=== PATIENT | female | born 1985 | race Caucasian/White ===

== ENCOUNTER 2017-08-26 09:24 | Emergency (ER) | payer BC, OTHER ==
[2017-08-26] MEDS ORDERED: KETOROLAC 30 MG/ML 1 ML VIAL IVP STA (09:41)
[2017-08-26] MEDS ORDERED: METOCLOPRAMIDE 5 MG/ML 2 ML VIAL IVP STA (09:41)
[2017-08-26] MEDS ORDERED: SODIUM CHLORIDE 0.9% 1,000 ML IV ONE (09:41)
[2017-08-26] MEDS ORDERED: guaiFENesin SYRUP 100MG/5ML 200 MG/10 ML CUP PO STA (09:41)
[2017-08-26] MEDS ORDERED: diphenhydrAMINE 50 MG/ML 1 ML VIAL IVP STA (09:41)
[2017-08-26] MEDS ORDERED: DEXAMETHASONE SOD PHOSPHATE 10 MG/ML 1 ML VIAL IV STA (09:42)
[2017-08-26 10:30] LABS: Basophils % (A) 1 %; Eosinophils # (A) 0.1 k/uL (0-0.7); Eosinophils % (A) 2 %; HCT 41.5 % (34.0-46.0); HGB 14.4 gm/dL (11.4-16.0); Lymphocytes # (A) 1.1 k/uL (1.0-4.8); Lymphocytes % (A) 45 %; MCH 32.3 pg (25.0-35.0); MCHC 34.8 g/dL (31.0-37.0); MCV 92.9 fL (80.0-100.0); Mean Platelet Volume 7.4; Monocytes # (A) 0.1 k/uL (0-1.0); Monocytes % (A) 4 %; Neutrophils # (A) 1.2 k/uL (1.3-7.7); Neutrophils % (A) 46 %; Platelet Count 235 k/uL (150-450); RBC 4.47 m/uL (3.80-5.40); RDW 11.7 % (11.5-15.5); WBC 2.5 k/uL (3.8-10.6)
[2017-08-26 10:44] LABS: ALT 11 U/L (9-52); AST 18 U/L (14-36); Albumin 4.8 g/dL (3.5-5.0); Alkaline Phosphatase 74 U/L (38-126); Anion Gap 16 mmol/L; Blood Urea Nitrogen 13 mg/dL (7-17); Calcium 9.9 mg/dL (8.4-10.2); Carbon Dioxide 27 mmol/L (22-30); Chloride 102 mmol/L (98-107); Potassium 4.3 mmol/L (3.5-5.1); Sodium 145 mmol/L (137-145); Total Bilirubin 0.4 mg/dL (0.2-1.3); Total Protein 7.4 g/dL (6.3-8.2)
--- NOTE | 2017-08-26 10:53 | XR ---
EXAMINATION TYPE: XR chest 2V DATE OF EXAM: 08/26/2017 COMPARISON: NONE HISTORY: Cough and pain per order. TECHNIQUE: Frontal and lateral views of the chest are obtained. FINDINGS: There is no focal air space opacity, pleural effusion, or pneumothorax seen. The cardiac silhouette size is within normal limits. The osseous structures are intact. IMPRESSION: No acute cardiopulmonary process.
[2017-08-26 10:59] LABS: Glucose 37 mg/dL (74-99)
--- NOTE | 2017-08-26 11:05 | ED ---
General Adult HPI - General Chief complaint: Headache Stated complaint: Migraine Time Seen by Provider: 08/26/17 09:33 Source: patient, RN notes reviewed Mode of arrival: ambulatory Limitations: no limitations - History of Present Illness Initial comments: 32-year-old female presents emergency Department chief complaint cough congestion, headache. Patient states she's been sick for last week with nasal congestion cough and chest disc. Patient states she developed a migraine headache today. She has a history migraine headaches normally takes Excedrin though she started taking Scooba today. States did not help. She states her aunt made her come in the hospital today. She reports no fever at home. Denies any neck pain or neck stiffness. States her cough is productive at time. Denies any abdominal pain slight nausea. She does have some light sensitivity. Patient states that she has NO KNOWN DRUG ALLERGIES. Denies any chance of . - Related Data Home Medications Medication Instructions Recorded Confirmed Dextroamphetamine/Amphetamine 30 mg PO BID 08/26/17 08/26/17 [Adderall] Hydrocodone/Acetaminophen [Vicodin 1 tab PO ONCE PRN 08/26/17 08/26/17 Es 7.5-300 mg Tablet] Sertraline [Zoloft] 25 mg PO DAILY 08/26/17 08/26/17 Allergies Allergy/AdvReac Type Severity Reaction Status Date / Time No Known Allergies Allergy Verified 08/26/17 09:49 Review of Systems ROS Statement: Those systems with pertinent positive or pertinent negative responses have been documented in the HPI. ROS Other: All systems not noted in ROS Statement are negative. Past Medical History Past Medical History: No Reported History History of Any Multi-Drug Resistant Organisms: None Reported Past Surgical History: Breast Surgery Additional Past Surgical History / Comment(s): Implants 2010 Past Anesthesia/Blood Transfusion Reactions: No Reported Reaction Past Psychological History: No Psychological Hx Reported Smoking Status: Current every day smoker Past Alcohol Use History: None Reported Past Drug Use History: None Reported - Past Family History Mother Family Medical History: CVA/TIA General Exam Limitations: no limitations General appearance: alert, in no apparent distress Head exam: Present: atraumatic, normocephalic, normal inspection Eye exam: Present: normal appearance, PERRL, EOMI. Absent: scleral icterus, conjunctival injection, periorbital swelling ENT exam: Present: normal exam, normal oropharynx, mucous membranes moist, TM's normal bilaterally Neck exam: Present: normal inspection, full ROM. Absent: tenderness, meningismus, lymphadenopathy Respiratory exam: Present: normal lung sounds bilaterally. Absent: respiratory distress, wheezes, rales, rhonchi, stridor Cardiovascular Exam: Present: regular rate, normal rhythm, normal heart sounds. Absent: systolic murmur, diastolic murmur, rubs, gallop, clicks Neurological exam: Present: alert, oriented X3, CN II-XII intact, reflexes normal, other (Finger to nose intact bilaterally without over shooting). Absent : motor sensory deficit Skin exam: Present: warm, dry, intact, normal color. Absent: rash Course Vital Signs 08/26/17 09:24 Temperature 97 F L Pulse Rate 68 Respiratory 18 Rate Blood Pressure 110/63 O2 Sat by Pulse 100 Oximetry Medical Decision Making - Medical Decision Making 32-year-old female presented emergency department for headache, URI symptoms. Patient chest x-ray was reviewed there is no acute abnormality. Patient lab work was hydrated, given medication for her headache. She states she feels improved. She did have hyperglycemia and labwork she was given orange juice, crackers she is tolerated repeat Accu-Chek any 9. Patient discharged at this time with a viral URI. - Lab Data Result diagrams: 08/26/17 10:00 08/26/17 10:00 Lab Results 08/26/17 08/26/17 08/26/17 Range/Units 10:00 10:00 10:00 WBC 2.5 L (3.8-10.6) k/uL RBC 4.47 (3.80-5.40) m/uL Hgb 14.4 (11.4-16.0) gm/dL Hct 41.5 (34.0-46.0) % MCV 92.9 (80.0-100.0) fL MCH 32.3 (25.0-35.0) pg MCHC 34.8 (31.0-37.0) g/dL RDW 11.7 (11.5-15.5) % Plt Count 235 (150-450) k/uL Neutrophils % 46 % Lymphocytes % 45 % Monocytes % 4 % Eosinophils % 2 % Basophils % 1 % Neutrophils # 1.2 L (1.3-7.7) k/uL Lymphocytes # 1.1 (1.0-4.8) k/uL Monocytes # 0.1 (0-1.0) k/uL Eosinophils # 0.1 (0-0.7) k/uL Basophils # 0.0 (0-0.2) k/uL Sodium 145 (137-145) mmol/L Potassium 4.3 (3.5-5.1) mmol/L Chloride 102 (98-107) mmol/L Carbon Dioxide 27 (22-30) mmol/L Anion Gap 16 mmol/L BUN 13 (7-17) mg/dL Creatinine 0.78 (0.52-1.04) mg/dL Est GFR (CKD-EPI)AfAm >90 (>60 ml/min/1.73 sqM) Est GFR (CKD-EPI)NonAf >90 (>60 ml/min/1.73 sqM) Glucose 37 L* (74-99) mg/dL POC Glucose (mg/dL) (75-99) mg/dL POC Glu Pv Design Engineer ID Calcium 9.9 (8.4-10.2) mg/dL Total Bilirubin 0.4 (0.2-1.3) mg/dL AST 18 (14-36) U/L ALT 11 (9-52) U/L Alkaline Phosphatase 74 (38-126) U/L Total Protein 7.4 (6.3-8.2) g/dL Albumin 4.8 (3.5-5.0) g/dL Influenza Type A RNA Not Detected (Not Detectd) Influenza Type B (PCR) Not Detected (Not Detectd) 08/26/17 Range/Units 11:35 WBC (3.8-10.6) k/uL RBC (3.80-5.40) m/uL Hgb (11.4-16.0) gm/dL Hct (34.0-46.0) % MCV (80.0-100.0) fL MCH (25.0-35.0) pg MCHC (31.0-37.0) g/dL RDW (11.5-15.5) % Plt Count (150-450) k/uL Neutrophils % % Lymphocytes % % Monocytes % % Eosinophils % % Basophils % % Neutrophils # (1.3-7.7) k/uL Lymphocytes # (1.0-4.8) k/uL Monocytes # (0-1.0) k/uL Eosinophils # (0-0.7) k/uL Basophils # (0-0.2) k/uL Sodium (137-145) mmol/L Potassium (3.5-5.1) mmol/L Chloride (98-107) mmol/L Carbon Dioxide (22-30) mmol/L Anion Gap mmol/L BUN (7-17) mg/dL Creatinine (0.52-1.04) mg/dL Est GFR (CKD-EPI)AfAm (>60 ml/min/1.73 sqM) Est GFR (CKD-EPI)NonAf (>60 ml/min/1.73 sqM) Glucose (74-99) mg/dL POC Glucose (mg/dL) 99 (75-99) mg/dL POC Glu Pv Design Engineer ID Calcium (8.4-10.2) mg/dL Total Bilirubin (0.2-1.3) mg/dL AST (14-36) U/L ALT (9-52) U/L Alkaline Phosphatase (38-126) U/L Total Protein (6.3-8.2) g/dL Albumin (3.5-5.0) g/dL Influenza Type A RNA (Not Detectd) Influenza Type B (PCR) (Not Detectd) Disposition Clinical Impression: Hypoglycemia, Migraine, Viral URI Disposition: HOME SELF-CARE Condition: Stable Instructions: Upper Respiratory Infection (ED) Additional Instructions: Please return to the Emergency Department if symptoms worsen or any other concerns. Is patient prescribed a controlled substance at d/c from ED?: No Referrals: Ash Plascencia MD [Primary Care Provider] - 1-2 days Time of Disposition: 11:40
[2017-08-26 11:37] LABS: Glucose,Whole Blood 99 mg/dL (75-99)
[2017-08-26 11:57] VITALS: BP 107/62; PULSE 67; RESP 16; TEMP 98.2
== END 2017-08-26 12:11 | disposition home or self-care (01) ==
LOC: EC 09:24
DX: G43.909 Migraine, unspecified, not intractable, without status migrainosus (principal); J06.9 Acute upper respiratory infection, unspecified; E16.2 Hypoglycemia, unspecified; F17.200 Nicotine dependence, unspecified, uncomplicated; Z79.899 Other long term (current) drug therapy
CPT/HCPCS: 36415; 80053; 85025; 87502; 71046; 99284; 96374; 96375 ×3; 96361; J1200; J1100; J2765; J1885

== ENCOUNTER → 2018-11-25 | Outpatient (CLI) | payer OTHER ==
--- NOTE | 2018-11-25 08:39 | US ---
EXAMINATION TYPE: US abdomen complete DATE OF EXAM: 11/25/2018 COMPARISON: NONE CLINICAL HISTORY: R10.9 unspecified abdominal Pain. Pain and vomiting. EXAM MEASUREMENTS: Liver Length: 13.9 cm Gallbladder Wall: 0.14 cm CBD: 0.2 cm Spleen: 10.6 cm Right Kidney: 10.1 x 4.2 x 4.9 cm Left Kidney: 9.9 x 3.6 x 3.1 cm Pancreas: wnl Liver: wnl Gallbladder: wnl Evidence for sonographic Palafox's sign: No CBD: wnl Spleen: wnl Right Kidney: wnl Left Kidney: wnl Upper IVC: wnl Abd Aorta: wnl The liver is homogenous. The intrahepatic portion of the IVC and proximal abdominal aorta are within normal limits. There is no evidence of cholelithiasis. Common bile duct is unremarkable. The visu alized portions of the pancreas are homogenous. The spleen is unremarkable. Kidneys are symmetric a nd free of hydronephrosis. No renal lesions are seen. IMPRESSION: Unremarkable abdominal ultrasound. No current evidence of cholelithiasis nor acute cholec ystitis in this patient with pain and vomiting.
== END | disposition home or self-care (01) ==
LOC: RADUSWWP 07:01
PROVIDERS: ATTEND Family Medicine
DX: R10.9 Unspecified abdominal pain (principal)
CPT/HCPCS: 76700

== ENCOUNTER → 2018-12-09 | Outpatient (CLI) | payer OTHER ==
--- NOTE | 2018-12-09 14:52 | NM ---
EXAMINATION TYPE: NM hepatobiliary w EF DATE OF EXAM: 12/09/2018 COMPARISON: Complete abdominal ultrasound from 2 weeks ago. HISTORY: Right upper quadrant pain. Additional symptoms of heartburn and reflux-like symptoms. TECHNIQUE: After the intravenous administration of 3.98 mCi Tc 99m Mebrofenin hepatobiliary scintigra phy is performed. Immediate images post injection. FINDINGS: There is poor diffuse accumulation of tracer by the liver. The gallbladder is visualized within 20 m inutes. The small bowel activity is noted within 40 minutes. At one hour 8 ounces of oral ensure pl us is given to mimic CCK and gallbladder ejection fraction is calculated at 78 %, in the normal range . Therefore there is no scintigraphic evidence of cystic or common bile duct obstruction to suggest acute cholecystitis or gallbladder dyskinesia. IMPRESSION: Exam is within normal limits.
== END | disposition home or self-care (01) ==
LOC: RADNMMAIN 12:39
PROVIDERS: ATTEND Family Medicine
DX: R10.11 Right upper quadrant pain (principal)
CPT/HCPCS: 78226; A9537

== ENCOUNTER → 2019-11-09 | Outpatient (CLI) | payer OTHER ==
--- NOTE | 2019-11-10 06:35 | MR ---
EXAMINATION TYPE: MR brain wo/w con DATE OF EXAM: 11/09/2019 COMPARISON: Outside CT at [facility] on November 01, 2019 HISTORY: Possible Subarachnoid Bleed, injury 11/01/19, recent abnormal CT. TECHNIQUE: Multiplanar, multisequence images of the brain and brainstem is performed without and with IV contras t, utilizing 6 mL intravenous Gadavist . FINDINGS: Diffusion weighted images demonstrate no evidence of a recent infarct or other diffusion ab normality. There is no worrisome extra-axial fluid collection. The ventricular system and cisternal spaces are normal in size and appearance. The brain volume is age appropriate. Occasional tiny focu s of T2 hyperintensity scattered throughout the white matter bilaterally. Approximately 5 -8 small le sions all measuring under 3 mm in size. T2 Star weighted images show no single punctate 2 mm focus de ep right parietal occipital region image 20 could reflect single focus of diffuse axonal injury. Midline structures demonstrate normal morphology. The craniocervical junction appears within normal limits. Post contrast images demonstrate no abnormal enhancement. The dural venous sinuses appear pa tent. The visualized sinuses are clear and the globes are intact. IMPRESSION: Single 2 mm focus low signal on T2 Star weighted images suspicious for tiny focus of diff use axonal injury deep right parietal occipital level. Mild to minimal nonspecific white matter loyd es. No suspicious enhancement.
== END | disposition home or self-care (01) ==
LOC: RADMRIMAIN 16:33
PROVIDERS: ATTEND Family Medicine
DX: S09.90XS Unspecified injury of head, sequela (principal)
CPT/HCPCS: 70553; A9585

== ENCOUNTER → 2020-07-07 | Outpatient (CLI) | payer OTHER ==
--- NOTE | 2020-07-07 11:35 | MM ---
Reason for exam: clinical finding. Baseline mammogram. History: Retro-pectoral silicone gel implants in both breasts, 2010. Physical Findings: Nurse Summary: 0.5cm nodule in the left breast at 5 o'clock and 12 o'clock (nurse mj). MG 3D Diag Mammo Imp W/Cad CARRIE Bilateral CC, MLO, and ID view(s) were taken. The breast tissue is extremely dense which could obscure a lesion on mammography. Bilateral breast prothesis. These results were verbally communicated with the patient and result sheet given to the patient on 07/07/20. ASSESSMENT: Incomplete: need additional imaging evaluation, BI-RAD 0 RECOMMENDATION: Ultrasound of the left breast.
--- NOTE | 2020-07-07 11:37 | USB ---
Reason for exam: additional evaluation requested from abnormal screening. History: Retro-pectoral silicone gel implants in both breasts, 2010. US Breast Limited LT Left limited breast ultrasound including focal area of concern, retroareolar and axilla demonstrates a 0.4 x 0.6 x 0.2cm oval, cystic cluster at 5 o'clock BB, a 0.5 x 0.4 x 0.2cm oval, cystic lesion at 9 o'clock 1cm from nipple and a 0.5 x 0.5 x 0.3cm oval, cystic lesion at 9 o'clock 2cm from nipple. These results were verbally communicated with the patient and result sheet given to the patient on 07/07/20. ASSESSMENT: Probably benign, BI-RAD 3 RECOMMENDATION: Ultrasound of the left breast in 6 months. Manage patient on a clinical basis.
== END ==
LOC: RADMAMWWP 08:42
PROVIDERS: ATTEND Family Medicine
DX: N63.20 Unspecified lump in the left breast, unspecified quadrant (principal); R92.8 Other abnormal and inconclusive findings on diagnostic imaging of breast
CPT/HCPCS: 77066; 76642; G0279; 77062

== ENCOUNTER → 2024-08-27 | Outpatient (CLI) | payer OTHER ==
--- NOTE | 2024-08-27 14:14 | XR ---
EXAMINATION TYPE: XR chest special 4+ views DATE OF EXAM: 08/27/2024 CLINICAL INDICATION: Female, 39 years old with history of J93.9 R/O Collapsed lung, TECHNIQUE: Frontal , bilateral oblique, and lateral views of the chest are obtained. COMPARISON: Prior chest x-ray August 26, 2017 FINDINGS: There is no focal air space opacity, pleural effusion, or pneumothorax seen. The cardiac silhouette size is stable and within normal limits. The osseous structures are intact. IMPRESSION: No pneumothorax seen bilaterally. [facility], , 08/27/2024 2:12 PM
== END | disposition home or self-care (01) ==
LOC: RADXRMAIN 13:43
DX: J93.9 Pneumothorax, unspecified (principal)
CPT/HCPCS: 71048

== ENCOUNTER → 2024-09-09 | Outpatient (CLI) | payer OTHER ==
--- NOTE | 2024-09-09 12:06 | MM ---
Reason for Exam: Screening (asymptomatic). Last mammogram was performed 4 year(s) and 2 month(s) ago. Patient History: Menarche at age 14. First Full-Term at age 28. Patient has history of breast feeding. 2010, Bilateral Implants. Last menstrual period: 08/15/2024 Prior Study Comparison: 07/07/2020 Bilateral Diagnostic Mammogram, [facility]. Tissue Density: The breasts are heterogeneously dense, which may obscure small masses. Findings: Analyzed By CAD. Bilateral breast implants appear intact. Right breast: There is no suspicious group of microcalcifications or new suspicious mass. Left breast: There is no suspicious group of microcalcifications or new suspicious mass. Bilateral breast implants appear intact on partially visualization implants. Right breast: There is no suspicious group of microcalcifications or new suspicious mass. Left breast: There is no suspicious group of microcalcifications or new suspicious mass. Overall Assessment: Benign, BI-RAD 2 Management: Screening Mammogram of both breasts in [address] [facility] will attempt to contact patient to return for supplemental views and ultrasound if indicated. Patient should continue monthly self-breast exams. A clinical breast exam by your physician is recommended on an annual basis. This exam should not preclude additional follow-up of suspicious palpable abnormalities. Note on Arianna scores and lifetime risk: 1. A Arianna score greater than 3% is considered moderate risk. If this is the case, consider specialist referral to assess eligibility for a risk reducing agent. 2. If overall lifetime risk for the development of breast cancer is 20% or higher, the patient may qualify for future screening with alternating mammogram and breast MRI. [facility], , 09/09/2024 12:03 PM. Electronically signed and approved by: Saroj Bai DO
== END | disposition home or self-care (01) ==
LOC: RADMAMWWP 11:03
PROVIDERS: ATTEND Plastic Surgery
DX: Z12.31 Encounter for screening mammogram for malignant neoplasm of breast (principal); R92.333 Mammographic heterogeneous density, bilateral breasts
CPT/HCPCS: 77067